=== PATIENT | female | born 1930 ===

== ENCOUNTER 2017-08-06 12:45 | Inpatient (IN) | payer OTHER ==
[~2017-08-06] VITALS: Ht 152.4 cm; Wt 54.4 kg
[2017-08-06] MEDS ORDERED: LOSARTAN POTASS50 MG PO (13:38)
[2017-08-06] MEDS ORDERED: CARDURA XL4 MG PO (13:38)
[2017-08-06] MEDS ORDERED: ASA81 MG PO (13:39)
[2017-08-06] MEDS ORDERED: NORVASC5 MG PO (13:39)
[2017-08-06] MEDS ORDERED: ZOCOR5 MG PO (13:39)
[2017-08-06] MEDS ORDERED: TOPROL XL50 M1 PO (13:39)
[2017-08-06] MEDS ORDERED: FOSAMAX70 MG PO (13:40)
[2017-08-13] MEDS ORDERED: PERCOCET 2.5-31 EACH PO (08:24)
[2017-08-13] MEDS ORDERED: INTEGRA PLUS C1 EACH PO (08:24)
[2017-08-13] MEDS ORDERED: BACTRIM DS TAB1 EACH PO (08:24)
== END 2017-08-13 11:01 | disposition home or self-care (01) | DRG 483 ==
LOC: ADM 08-08 14:30 → EDSTATUS 08-08 14:30 → SURG 08-12 06:00 → O/R 08-12 06:00 → SURH 08-12 13:15 → SURG 08-12 18:40
PROVIDERS: Orthopaedic Surgery Sports Medicine
PROC: 0RRJ00Z Replacement of Right Shoulder Joint with Reverse Ball and Socket Synthetic Substitute, Open Approach (ICD-10-PCS; principal; 2017-08-12 13:15)
DX: M19.011 Primary osteoarthritis, right shoulder (principal); M12.811 Other specific arthropathies, not elsewhere classified, right shoulder